=== PATIENT | female | born 1950 | race Caucasian/White ===

== ENCOUNTER → 2021-01-13 08:56 | Outpatient (CLI) | payer MEDICARE, OTHER, SELFPAY ==
[2021-01-13 20:01] LABS: SARS-CoV-2 RNA PCR Negative
== END ==
PROVIDERS: PCP Family Medicine; Visit Provider Physician Assistant
DX: Z20.822 Contact with and (suspected) exposure to COVID-19 (principal)
CPT/HCPCS: C9803; U0003; U0005

== ENCOUNTER → 2021-03-19 00:56 | Outpatient (CLI) | payer MEDICARE, OTHER, SELFPAY ==
[2021-03-19 18:23] LABS: SARS-CoV-2 RNA PCR Negative
== END ==
PROVIDERS: PCP Family Medicine; Visit Provider Family Medicine
DX: Z20.822 Contact with and (suspected) exposure to COVID-19 (principal)
CPT/HCPCS: C9803; U0003; U0005

== ENCOUNTER → 2021-06-06 08:47 | Outpatient (CLI) | payer MEDICARE, OTHER, SELFPAY ==
[2021-06-07 10:57] LABS: SARS-CoV-2 RNA PCR Negative
== END ==
PROVIDERS: PCP Family Medicine; Visit Provider Family Medicine
DX: J06.9 Acute upper respiratory infection, unspecified (principal); Z20.822 Contact with and (suspected) exposure to COVID-19
CPT/HCPCS: C9803; U0003; U0005

== ENCOUNTER 2023-08-22 08:44 | Outpatient (CLI) | payer MEDICARE, OTHER, SELFPAY ==
--- NOTE | ~2023-08-22 | US_ITS ---
Limited Abdominal Sonogram: Real-time sonographic imaging of the right upper quadrant was performed. Clinical History: Epigastric pain Findings: The liver appears mildly echogenic, with no evidence of mass lesion or bile duct dilatatio n. Main portal vein demonstrates normal direction of flow. The gallbladder is well distended, and kortney ears normal with no evidence of gallstone or wall thickening. The common bile duct measures 5 mm. Th e visualized pancreas, aorta, and IVC are unremarkable. Impression: Diffuse fatty infiltration of liver. Reviewed, dictated and finalized at location M. Impression: Diffuse fatty infiltration of liver.
== END 2023-08-22 08:45 ==
LOC: MICIMG 08:46
PROVIDERS: PCP Family Medicine; Visit Provider Family Medicine
DX: R10.13 Epigastric pain (principal); K76.9 Liver disease, unspecified
CPT/HCPCS: 76705

== ENCOUNTER 2024-02-04 11:36 | Emergency (ER) | payer MEDICARE, OTHER, SELFPAY ==
--- NOTE | ~2024-02-04 | XR_ITS ---
EXAMINATION: XR knee RT min 4V DATE: 02/04/2024 12:14 INDICATION: Anterior right knee pain. TECHNIQUE: 4 views of right knee were obtained. COMPARISON: None. FINDINGS: Alignment is normal. No fracture. There is mild tricompartmental osteoarthritis. No knee rufino int effusion. IMPRESSION: 1. Mild right knee osteoarthritis. Reviewed, dictated and finalized at location A.
[2024-02-04 11:52] VITALS: BP 121/73; PULSE 99; RESP 18; TEMP 36.2; O2SAT 97
--- NOTE | 2024-02-04 12:04 | ED.EXTPRO ---
HPI - Extremity Problem General Chief complaint: Extremity Problem,Nontraumatic Stated complaint: RT Knee Pain Source: patient, RN notes reviewed and old records reviewed Mode of arrival: ambulatory Limitations: no limitations History of Present Illness HPI Narrative: Patient presents with complaints of right knee pain for 2 weeks. She reports that she initially began having pain when climbing out of a pool 2 weeks ago. She reports now she is having sensation of knee locking and clicking. States that this worsened yesterday. She is taking [id number] medications for her symptoms without any significant relief. She has had multiple surgeries on her left knee, states that this knee feels the way it did before she had to have surgery on the opposite knee Related Data Allergies Allergy/AdvReac Type Severity Reaction Status Date / Time prednisone AdvReac Intermediate Palpitation Verified 02/04/24 11:40 s Sulfa (Sulfonamide AdvReac Mild itching Verified 02/04/24 11:40 Antibiotics) Review of Systems Review of Systems: All systems reviewed & are unremarkable except as noted in HPI and below Constitutional: Constitutional: Reports no additional constitutional complaints ENT: Reports system reviewed and no additional complaints, except as documented Cardiovascular: Cardiovascular: Reports no additional cardiovascular complaints Respiratory: Respiratory: Reports no additional respiratory complaints Gastrointestinal: Gastrointestinal: Reports no additional gastrointestinal complaints Musculoskeletal: Musculoskeletal: Reports no additional musculoskeletal complaints, Reports as per HPI and Reports arthralgias (right knee) [facility] Past Medical History Medical History Abnormal uterine and vaginal bleeding, unspecified Benign essential HTN Chronic obstructive pulmonary disease, unspecified Elevated blood-pressure reading, without diagnosis of hypertension Major depressive disorder, recurrent, in partial remission Other abnormal glucose Pure hyperglyceridemia 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 Social History Social History Smoking status: Former smoker Second hand tobacco smoke exposure: No Alcohol intake: never Substance use: never Substance use type: does not use Do You Feel Safe in your Home?: Yes Lack of Transportation: No Lack of Food: Never True Current Housing: I Have Housing Concerned About Future Housing: No Difficulty Paying for Meds: No Currently Unemployed: No Education: High School Diploma/GED Difficulty w/ Childcare or Family Care: No Living arrangements: alone Occupation/Education: retired Gender identity (if verbalized by the patient): Female Sexual Orientation (if Verbalized by the Patient): Straight or Heterosexual Spiritual care concerns: No Comments At the time of my signature, I reviewed and agree with the nursing past medical, surgical, social, and family history. There is no relevant family history pertinent to the patient complaint. Exam Const: General: cooperative, no acute distress, alert and awake Orientation/consciousness: oriented to person, oriented to place and oriented to time HENMT: Head: normal to inspection Resp: Effort & Inspection: normal respiratory effort and able to speak in complete sentences Auscultation: clear to auscultation bilaterally, no crackles, no rales, no rhonchi and no wheezes Cardio: Palpation: normal PMI Rate: regular rate Rhythm: regular rhythm Heart sounds: S1 normal heart sound present and S2 normal heart sound present Neuro: General: oriented to person, oriented to place and oriented to time Cranial nerves: Yes CN's II-XII intact bilaterally Extrem: Right lower extremity: knee Details: normal to inspection, tenderness Location: of the patella Details: laterally
== END 2024-02-04 12:44 | disposition home or self-care (01) ==
PROVIDERS: Emergency Provider Nurse Practitioner Family; PCP Family Medicine
DX: M25.561 Pain in right knee (principal); M17.11 Unilateral primary osteoarthritis, right knee; I10 Essential (primary) hypertension; J44.9 Chronic obstructive pulmonary disease, unspecified; E78.1 Pure hyperglyceridemia; E11.319 Type 2 diabetes mellitus with unspecified diabetic retinopathy without macular edema; Z79.84 Long term (current) use of oral hypoglycemic drugs
CPT/HCPCS: 73564; 99213; G0463

== ENCOUNTER 2025-03-07 20:22 | Inpatient (IN) | payer MEDICARE, OTHER, SELFPAY ==
[2025-03-07] VITALS (9 sets, daily range): BP systolic 156–165; BP diastolic 66–78; PULSE 78–96; RESP 18–20; TEMP 36.9; O2SAT 94–97
--- NOTE | ~2025-03-07 | CT_ITS ---
EXAMINATION: CT knee RT wo con DATE: 03/08/2025 01:07 INDICATION: Right knee pain. TECHNIQUE: Computed tomography (CT) of the right knee was performed without intravenous contrast. Automated exposure control and iterative reconstruction technique were employed. The dose-length product was 664.40 mGy-cm. COMPARISON: Right knee radiographs 03/07/2025 FINDINGS: Alignment is normal. No fracture. There is moderate osteoarthritis of medial and lateral compartments and mild osteoarthritis of patellofemoral compartment. No knee joint effusion. There is a small Roque's cyst. IMPRESSION: 1. Moderate right knee osteoarthritis. Reviewed, dictated and finalized at location E.
--- NOTE | ~2025-03-07 | XR_ITS ---
Examination: XR knee RT min 4V Clinical History: right knee pain Comparison: None Technique: 4 views right knee Findings/impression: 1. No fracture, dislocation, or effusion right knee. Reviewed, dictated and finalized at location R.
--- OUTSIDE RECORDS SUMMARY | 2025-03-07 21:02 | XMS_ITS | Clinical Summary ---
Author Organization [facility] Address [address] [place] [id number] Care Team Providers Care Special Delivery Messenger Name Role Phone Flavio Mcneal MD Primary Care Provider [phone] Allergies Active Allergy Reactions Criticality Noted Date Comments Prednisone Anxiety Low 10/20/2023 Soybean Oil Other (see comment) 05/18/2019 Mouth sores Sulfa Antibiotics Itching Low 04/18/2019 Medications losartan 100 MG tablet Take 1 tablet (100 mg total) by mouth daily. 1 9 Active metFORMIN ER 500 MG 24 hr tablet Take 1 tablet (500 mg total) by mouth daily before supper. 9 Active sertraline 50 MG tablet Take 1 tablet (50 mg total) by mouth daily. 9 Active FARXIGA 10 MG tablet Take 1 tablet (10 mg total) by mouth daily. 4 Active albuterol sulfate HFA 108 (90 Base) MCG/ACT inhaler INHALE 1 PUFF BY MOUTH EVERY 4 HOURS NEEDED FOR SHORTNESS OF BREATH OR WHEEZING 3 Active Budesonide-Form oterol Fumarate (SYMBICORT IN) Inhale 1-2 puffs into the lungs daily. Active Active Problems Problem Noted Date Diagnosed Date COPD with acute exacerbation 10/20/2023 Family History Medical History Relation Comments COPD Father Cancer Father Heart Disease Father COPD Mother Heart Disease Mother Relation Status Comments Father Mother Social History Tobacco Use Types Packs/Day Years Used Date Smoking Tobacco: Former Cigarettes Smokeless Tobacco: Never Tobacco Cessation:Counseling Given: Not Answered Comments:Quit 10/08/2012 Alcohol Use Standard Drinks/Week Comments No 0 (1 standard drink = 0.6 oz pur e alcohol) AUDIT-C Answer Date Recorded Frequency of Alcohol Consumption Never 04/18/2019 Average Number of Drinks Not on file 019 Frequency of Binge Drinking Not on file 03/22 Comments No Sex and Gender Information Value Date Recorded Sex Assigned at Not on file Legal Sex Female 10:11 PM CDT Gender Identity Not on file Sexual Orientation Not on file Last Filed Vital Signs Vital Sign Reading Time Taken Comments Blood Pressure 158/65 10/21/2023 11:50 AM CDT Pulse 84 10/21/2023 11:50 AM CDT Temperature 35.7 C (96.2 F) 10/21/2023 11:50 AM CDT Respiratory Rate 20 10/21/2023 11:5 0 AM CDT Oxygen Saturation 96% 10/21/2023 11: 50 AM CDT Inhaled Oxygen Concentration - - Weight 111.1 kg (244 lb 14.9 oz) 10/21/2023 5:00 AM CDT Height 167.6 cm (5' 6) 10/20/2023 9:23 AM CDT Body Mass Index 39.53 10/20/2023 9:23 AM CDT Plan of Treatment Health Maintenance Due Date Last Done Comments Hepatitis C 1966 DTaP, Tdap and Td Vaccines ( 1 - Tdap) 1967 Pneumococcal Vaccine: 50+ Years (1 of 2 - PCV) 1967 Zoster Vaccines (1 of 2) 1998 Annual Medicare Wellness Visit 2013 Dexa Scan (General) 2013 RSV Immunization or 60+ Years (1 - 1-dose 75+ series) 2023 COVID-19 Vaccine (3 - 2024-2 6 season) 2025 08/12/2020, 07/22/2020 Influenza Adult (#1) 2025 03/14/2019 Hepatitis A Vaccines Aged Out No long er eligible based on patient's age to complete this topic Meningococcal B Vaccine Aged Out No l onger eligible based on patient's age to complete this topic Meningococcal Vaccine Aged Out No krys live eligible based on patient's age to complete this topic RSV Immunizations Under 20 Months Aged Out No longer eligible b ased on patient's age to complete this topic Insurance MEDICARE [facility] Advance Directives Documents on File Type Date Recorded 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
--- NOTE | 2025-03-07 22:30 | ED.EXTPRO ---
HPI - Extremity Problem General Chief complaint: Extremity Problem,Nontraumatic <Alma Foster PA-C - Last Filed: 03/08/25 14:53> Stated complaint: R KNEE POPPING WHILE WALKING <Alma Foster PA-C - Last Filed: 03/08/25 14:53> Time Seen by Provider: 03/07/25 20:42 <Alma Foster PA-C - Last Filed: 03/08/25 14:53> Source: patient <BIN Jaeger Last Filed: 03/08/25 14:53> Mode of arrival: EMS <BIN Jaeger Last Filed: 03/08/25 14:53> Limitations: no limitations <Alma Foster PA-C - Last Filed: 03/08/25 14:53> History of Present Illness HPI Narrative: This is a 75 year old female that presents to the ER for right knee pain. Reports it has been bothering her the last couple of days. But worsening tonight when feeling a pop while walking. Reports decreased ROM, unable to bear weight. Denies numbness. <Alma Foster PA-C - Last Filed: 03/08/25 14:53> Related Data Allergies/Adverse reactions: Allergies Allergy/AdvReac Type Severity Reaction Status Date / Time soy Allergy Severe Sore mouth Verified 03/08/25 04:39 prednisone AdvReac Intermediate Palpitation Verified 03/08/25 04:39 s Sulfa (Sulfonamide AdvReac Mild itching Verified 03/08/25 04:39 Antibiotics) <Alma Foster PA-C - Last Filed: 03/08/25 14:53> Review of Systems Review of Systems: All systems reviewed & are unremarkable except as noted in HPI and below <Alma Foster PA-C - Last Filed: 03/08/25 14:53> [facility] Past Medical History Medical History: Medical History 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 Major depressive disorder, recurrent, in partial remission Pure hyperglyceridemia Benign essential HTN Abnormal uterine and vaginal bleeding, unspecified Other abnormal glucose Chronic obstructive pulmonary disease, unspecified Elevated blood-pressure reading, without diagnosis of hypertension <Alma Foster PA-C - Last Filed: 03/08/25 14:53> Social History Social History: Social History (Updated 03/08/25 @ 04:55 by Duane Garcia RN) Smoking status: Former smoker Second hand tobacco smoke exposure: No Alcohol intake: never Substance use: never Substance use type: does not use Do You Feel Safe in your Home?: Yes Lack of Transportation: No Lack of Food: Never True Current Housing: I Have Housing Concerned About Future Housing: No Difficulty Paying Gas/Electric Bills: No Difficulty Paying for Meds: No Currently Unemployed: No Education: High School Diploma/GED Difficulty w/ Childcare or Family Care: No Living arrangements: other Occupation/Education: retired Gender identity (if verbalized by the patient): Female Sexual Orientation (if Verbalized by the Patient): Straight or Heterosexual Spiritual care concerns: No Agree to blood products: Yes <Alma Foster PA-C - Last Filed: 03/08/25 14:53> Exam Narrative: GENERAL: Well-appearing, well-nourished, and in no acute distress. HEAD: Normocephalic, atraumatic. EYES: EOMI. EXTREMITIES: Mildly decreased range of motion of the right knee due to pain. No edema or obvious deformity. Normal DP pulse. Normal sensation SKIN: Warm, dry, no rash. NEURO: No focal deficits. Alert and oriented x3. PSYCH: Normal mood and affect <Alma Foster PA-C - Last Filed: 03/08/25 14:53> Course Course Emergency Course: patient unable to ambulate with walker. will consult hospitalist for admission <Alma Foster PA-C - Last Filed: 03/08/25 14:53> Reevaluation(s) Reevaluation #1: I assumed care of this patient at shift change with pending CT and disposition. No interval change in physical her condition. CT just shows no evidence of fracture or dislocation tiny Roque's cyst about 3mmX 6 mm. Discussed with the hospitalist will accept the patient <Jd Peter MD - Last Filed: 03/08/25 03:02> Vital Signs Vital signs: Vital Signs Temperature 98.4 F 03/07/25 20:25 Pulse Rate 96 03/07/25 20:25 Respiratory Rate 20 03/07/25 20:25 Blood Pressure 157/72 H 03/07/25 20:25 Pulse Oximetry 96 03/07/25 20:25 Oxygen Delivery Room Air 03/07/25 20:25 Temperature 97.5 F L 03/08/25 04:24 Pulse Rate 84 03/08/25 04:24 Respiratory Rate 16 03/08/25 04:24 Blood Pressure 151/76 H 03/08/25 04:24 Pulse Oximetry 97 03/08/25 04:24 Oxygen Delivery Room Air 03/08/25 04:55 <Alma Foster PA-C - Last Filed: 03/08/25 14:53> Vital Signs Temperature 98.4 F 03/07/25 20:25 Pulse Rate 96 03/07/25 20:25 Respiratory Rate 20 03/07/25 20:25 Blood Pressure 157/72 H 03/07/25 20:25 Pulse Oximetry 96 03/07/25 20:25 Oxygen Delivery Room Air 03/07/25 20:25 Temperature 97.5 F L 03/08/25 04:24 Pulse Rate 84 03/08/25 04:24 Respiratory Rate 16 03/08/25 04:24 Blood Pressure 151/76 H 03/08/25 04:24 Pulse Oximetry 97 03/08/25 04:24 Oxygen Delivery Room Air 03/08/25 04:55 <Jd Peter MD - Last Filed: 03/08/25 03:02> MDM - Extremity (Nontraumatic) MDM Narrative Medical decision making narrative: Patient presents the emergency department after feeling a pop in her right knee while walking. She is neurovascularly intact. Right knee x-ray without acute osseous abnormalities. Attempt at ambulation, patient was not able to get around with a walker. She lives home alone. Will consult hospitalist for admission for PT/OT evaluation. Would like CT scan prior to admission. Care taken over by Dr. Peter pending CT scan results <BIN Jaeger Last Filed: 03/08/25 14:53> Differential Diagnosis Differential diagnosis: Likely other (Acute internal derangement of knee, osteoarthritis, tibial plateau fracture) <Alma Foster PA-C - Last Filed: 03/08/25 14:53> Lab Data Result diagrams: 03/08/25 08:59 03/08/25 09:00 <Alma Foster PA-C - Last Filed: 03/08/25 14:53> Imaging Data Radiologist's impression: Right knee x-ray: No evidence of acute fracture or dislocation EXAMINATION: CT knee RT wo con DATE: 03/08/2025 01:07 INDICATION: Right knee pain. TECHNIQUE: Computed tomography (CT) of the right knee was performed without intravenous contrast. Automated exposure control and iterative reconstruction technique were employed. The dose-length product was 664.40 mGy-cm. COMPARISON: Right knee radiographs 03/07/2025 FINDINGS: Alignment is normal. No fracture. There is moderate osteoarthritis of medial and lateral compartments and mild osteoarthritis of patellofemoral compartment. No knee joint effusion. There is a small Roque's cyst. IMPRESSION: 1. Moderate right knee osteoarthritis. <Alma Foster PA-C - Last Filed: 03/08/25 14:53> Critical Care Time Critical Care Time Critical Care Time: No <Alma Foster PA-C - Last Filed: 03/08/25 14:53> Discharge Plan Discharge Clinical Impression: Acute internal derangement of right knee, Abnormal gait <Alma Foster PA-C - Last Filed: 03/08/25 14:53> Patient Disposition: Still a Patient <Alma Foster PA-C - Last Filed: 03/08/25 14:53> Condition: Stable <Alma Foster PA-C - Last Filed: 03/08/25 14:53> Time of Disposition: 03:01 <Alma Foster PA-C - Last Filed: 03/08/25 14:53> 03:01 <Jd Peter MD - Last Filed: 03/08/25 03:02>
[2025-03-07] MEDS: ACETAMINOPHEN 500 MG TABLET 1000 MG PO (22:38)
[2025-03-08 03:53] VITALS: BP 156/78; PULSE 78; RESP 18; O2SAT 100
[2025-03-08 04:05] VITALS: BP 126/75; PULSE 76; RESP 18; O2SAT 99
[2025-03-08 04:24] VITALS: BP 151/76; PULSE 84; RESP 16; TEMP 36.4; O2SAT 97
[2025-03-08 04:27] VITALS: BMI 40.2
--- NOTE | 2025-03-08 04:27 | ADMGEN ---
This patient, Kita Grey, was admitted to [facility] Surg Room 302-01. Patient/family oriented to hospital policies and general routines including ID bracelet, bed and alarms, visiting hours, pain management, procedures, bathroom and other care routines, personal items, smoking policy, room service/diet, and visiting hours. Information on how to activate the Rapid Response Team has been discussed. Patient/Family are encouraged to report perceived risks to care and to ask questions if they do not understand what they are told or what they should do.
--- NOTE | 2025-03-08 06:51 | PM.IMHP ---
H&P: HPI History of Present Illness Date/Time: 03/08/25 06:51 Chief Complaint: Right knee pain Narrative: 75-year-old female with history of class 3 obesity, kang cyst right knee, hypertension, COPD, depression, type 2 diabetes without current long to receive insulin, presents [facility] ER on 03/07/2025 complaining of right knee pain, patient was walking and heard a pop, she has since had pain. X-ray and CT of right knee did not demonstrate any acute abnormalities. Patient unable to ambulate in the ER. Review of Systems Review of Systems: All systems reviewed & are unremarkable except as noted in HPI and below (Subjective) PMFSH Past Medical History Medical History 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 Major depressive disorder, recurrent, in partial remission Pure hyperglyceridemia Benign essential HTN Abnormal uterine and vaginal bleeding, unspecified Other abnormal glucose Chronic obstructive pulmonary disease, unspecified Elevated blood-pressure reading, without diagnosis of hypertension Social History Social History (Updated 03/08/25 @ 04:55 by Duane Garcia RN) Smoking status: Former smoker Second hand tobacco smoke exposure: No Alcohol intake: never Substance use: never Substance use type: does not use Do You Feel Safe in your Home?: Yes Lack of Transportation: No Lack of Food: Never True Current Housing: I Have Housing Concerned About Future Housing: No Difficulty Paying Gas/Electric Bills: No Difficulty Paying for Meds: No Currently Unemployed: No Education: High School Diploma/GED Difficulty w/ Childcare or Family Care: No Living arrangements: other Occupation/Education: retired Gender identity (if verbalized by the patient): Female Sexual Orientation (if Verbalized by the Patient): Straight or Heterosexual Spiritual care concerns: No Agree to blood products: Yes Meds Home Medications and Allergies Home Medications ?Medication ?Instructions ?Recorded ?Confirmed ?Type albuterol sulfate 90 mcg/actuation 1 inh inhalation Q4H PRN shortness 02/13/23 03/08/25 Rx aerosol inhaler of breath or wheezing #6.7 grams dapagliflozin propanediol 10 mg 10 mg PO DAILY #100 tabs 09/30/24 03/08/25 Rx tablet (Farxiga) losartan 100 mg tablet 100 mg PO DAILY #90 tabs 02/20/25 03/08/25 Rx metformin 500 mg tablet 1,000 mg (2 x 500 mg) PO DAILY 02/20/25 03/08/25 Rx #180 tabs sertraline 50 mg tablet 50 mg PO DAILY #90 tabs 02/20/25 03/08/25 Rx Allergies Allergy/AdvReac Type Severity Reaction Status Date / Time soy Allergy Severe Sore mouth Verified 03/08/25 04:39 prednisone AdvReac Intermediate Palpitation Verified 03/08/25 04:39 s Sulfa (Sulfonamide AdvReac Mild itching Verified 03/08/25 04:39 Antibiotics) Vital Signs Vital Signs - 24 hr 03/07/25 20:25 03/07/25 20:48 03/07/25 21:00 Temperature 98.4 F Pulse Rate 96 Respiratory Rate 20 Blood Pressure 157/72 H Pulse Oximetry 96 97 95 Oxygen Delivery Room Air 03/07/25 21:01 03/07/25 21:21 03/07/25 21:30 Temperature Pulse Rate Respiratory Rate Blood Pressure 165/66 H Pulse Oximetry 95 95 94 Oxygen Delivery 03/07/25 21:45 03/07/25 22:31 03/07/25 22:35 Temperature Pulse Rate 78 Respiratory Rate 18 Blood Pressure 156/78 H Pulse Oximetry 94 94 94 Oxygen Delivery 03/08/25 03:53 03/08/25 04:05 03/08/25 04:24 Temperature 97.5 F L Pulse Rate 78 76 84 Respiratory Rate 18 18 16 Blood Pressure 156/78 H 126/75 151/76 H Pulse Oximetry 100 99 97 Oxygen Delivery 03/08/25 04:55 Temperature Pulse Rate Respiratory Rate Blood Pressure Pulse Oximetry Oxygen Delivery Room Air Exam Const: General: comfortable and no acute distress Other: A&O x3 HENMT: Mouth: Yes moist mucous membranes Eyes: Pupils: Equal, round and reactive pupils present Neck: Neck: supple Resp: Effort & Inspection: normal respiratory effort Auscultation: clear to auscultation bilaterally Cardio: Rate: regular rate Rhythm: regular rhythm GI: Inspection: non-distended GI Palp: Yes Soft to palpation : General: Yes bladder normal to palpation Neuro: Motor exam (neuro): 5/5 motor strength present throughout Extrem: General: no edema Other: Valgus and varus stress test negative, posterior and anterior ligament testing negative, although patient writhing in pain when trying to flex the knee herself Assessment and Plan Assessment and plan (1) Right knee pain: Code(s): M25.561 - Pain in right knee Status: Acute Plan Unable to bear weight on right knee, consult orthopedic surgery. SCDs. Patient wishes to be full code. Hospitalist MIPS Advance Care Plan I have confirmed that the patient's Advanced Care Plan is present, code status is documented, or surrogate decision maker is listed in patient medical record.: Yes Medication Reconciliation I have utilized all available resources to obtain, update and review the patients current medications (includes all prescriptions, OTC, herbals, cannabis, and nutritional supplements).: Yes
[2025-03-08] MEDS: SERTRALINE HCL 50 MG TABLET PO (08:26)
[2025-03-08] MEDS: LOSARTAN POTASSIUM 100 MG TABLET PO (08:26)
[2025-03-08 09:07] LABS: Hematocrit 44.1 % (37.0-47.0); Hemoglobin 13.9 g/dL (12.0-15.0); Immature Granulocyte Percent A 0.3 % (0-0.5); Lymphocytes Absolute Auto 2.39 K/mm3 (0.9-3.2); Mean Corpuscular HGB Conc 31.5 g/dl (32-36); Mean Corpuscular Hemoglobin 28.0 pg (26-34); Mean Corpuscular Volume 88.9 fl (80-100); Nucleated Red Blood Cells Absolute Auto 0.000 K/mm3 (0.0-0.012); Nucleated Red Blood Cells Perc 0.0 % (0.0-0.2); Platelet Count Result 186 k/mm3 (150-375); Red Blood Count 4.96 M/mm3 (4.2-5.4); White Blood Count 8.6 K/mm3 (4.5-10.0)
[2025-03-08 09:26] LABS: INR 1.0; Prothrombin Time 13.5 Seconds (11.1-14.7)
[2025-03-08 09:27] LABS: Partial Thromboplastin Time 25.3 Seconds (22.3-36.8)
[2025-03-08 09:29] LABS: Anion Gap 7 mmol/L (4-12); Blood Urea Nitrogen 16 mg/dL (7-17); Calcium 9.0 mg/dL (8.4-10.2); Carbon Dioxide 24 mmol/L (22-30); Chloride 104 mmol/L (98-107); Estimated CRCL calculation 65 ml/min; Estimated Glomerular Filt Rate > 60; Glucose 178 mg/dL (65-110); Potassium 3.9 mmol/L (3.4-5.0); Sodium 135 mmol/L (137-145)
[2025-03-08 09:57] LABS: Hemoglobin A1C 6.6 % (<5.7)
--- NOTE | 2025-03-08 12:49 | P.PNIM_ITS ---
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 SCDs. Patient wishes to be full code. Time Spent With Patient Time with patient: 25 - 35 minutes Subjective Date/time seen: 03/08/25 12:49 Interval history: 75-year-old female with history of class 3 obesity, kang cyst right knee, hypertension, COPD, depression, type 2 diabetes without current long to receive insulin, presents the [facility] ER on 03/07/2025 complaining of right knee pain, patient was walking and heard a pop, she has since had pain. X-ray and CT of right knee did not demonstrate any acute abnormalities. Patient unable to ambulate in the ER. Pt is seen and examined. Ortho consulted, awaiting recommendations. Pain is controlled. NO nausea. Review of Systems Review of Systems: All systems reviewed & are unremarkable except as noted in HPI and below (Subjective) Exam Const: General: comfortable and no acute distress Other: A&O x3 HENMT: Mouth: Yes moist mucous membranes Eyes: Pupils: Equal, round and reactive pupils present Neck: Neck: supple Resp: Effort & Inspection: normal respiratory effort Auscultation: clear to auscultation bilaterally Cardio: Rate: regular rate Rhythm: regular rhythm GI: Inspection: non-distended : General: Yes bladder normal to palpation Bimanual exam- vagina & uterus: bladder normal to palpation Neuro: Cranial nerves: Yes Equal, round and reactive pupils present Motor exam (neuro): 5/5 motor strength present throughout Extrem: General: no edema Other: Valgus and varus stress test negative, posterior and anterior ligament testing negative, although patient writhing in pain when trying to flex the knee herself Objective Data Vital Signs Vital Signs: Vital Signs - 24 hr 03/07/25 20:25 03/07/25 20:48 03/07/25 21:00 Temperature 98.4 F Pulse Rate 96 Respiratory Rate 20 Blood Pressure 157/72 H Pulse Oximetry 96 97 95 Oxygen Delivery Room Air 03/07/25 21:01 03/07/25 21:21 03/07/25 21:30 Temperature Pulse Rate Respiratory Rate Blood Pressure 165/66 H Pulse Oximetry 95 95 94 Oxygen Delivery 03/07/25 21:45 03/07/25 22:31 03/07/25 22:35 Temperature Pulse Rate 78 Respiratory Rate 18 Blood Pressure 156/78 H Pulse Oximetry 94 94 94 Oxygen Delivery 03/08/25 03:53 03/08/25 04:05 03/08/25 04:24 Temperature 97.5 F L Pulse Rate 78 76 84 Respiratory Rate 18 18 16 Blood Pressure 156/78 H 126/75 151/76 H Pulse Oximetry 100 99 97 Oxygen Delivery 03/08/25 04:55 Temperature Pulse Rate Respiratory Rate Blood Pressure Pulse Oximetry Oxygen Delivery Room Air Intake/Output Intake/Output: Intake & Output 03/05/25 03/06/25 03/07/25 03/08/25 23:59 23:59 23:59 23:59 Intake Total 120 Balance 120 Meds/Results Medications: Active Medications Generic Name Dose Route Start Last Admin Trade Name Freq PRN Reason Stop Dose Admin Acetaminophen 650 mg 03/08/25 03:03 Acetaminophen 325 Mg Tablet PO Q4H PRN Mild Pain (1-3) or Fever Hydrocodone Bitart/Acetaminophen 1 tab 03/08/25 03:03 Hydrocodone/Acetaminophen (*Crx) 5-325 Mg Tablet PO Q4H PRN Pain Rated 4-6 Albuterol 2 puff 03/08/25 06:53 Albuterol Sulfate (*Sp) Aerosol 1 Puff INHALATION Q4H PRN Shortness Of Breath Or Wheezing Dextrose 12.5 gm 03/08/25 06:50 Dextrose 50% 25 Gm/50 Ml Syringe IV PUSH PRN PRN Hypoglycemia Protocol Glucose 15 gm 03/08/25 06:50 Glucose Oral Gel 15 Gm Of Glucse In 37.5 Gm Tube PO PRN PRN Hypoglycemia Protocol Dextrose 1,000 mls @ 100 mls/hr 03/08/25 06:50 Dextrose 5% 1,000 Ml IVPB PRN PRN Hypoglycemia Protocol Ibuprofen 800 mg in 200 mls @ 400 mls/hr 03/08/25 09:30 Caldolor 800 Mg/200 Ml IVPB Q6H PRN Pain Rated 1-3 Insulin Aspart 3 - 6 units 03/08/25 08:00 03/08/25 11:45 Insulin Aspart (*Bkc) 100 Units/Ml SUB-Q Not Given TIDWM KENJI Protocol Losartan Potassium 100 mg 03/08/25 09:00 03/08/25 08:26 Losartan Potassium 100 Mg Tablet PO 100 mg DAILY KENJI Administration Ondansetron HCl 4 mg 03/08/25 03:03 Ondansetron Inj 4 Mg/2 Ml Vial IV PUSH Q4H PRN Nausea Sertraline HCl 50 mg 03/08/25 09:00 03/08/25 08:26 Sertraline Hcl 50 Mg Tablet PO 50 mg DAILY KENJI Administration Radiology Results: ITS Impressions Knee CT 03/08/25 09:43 IMPRESSION: 1. Moderate right knee osteoarthritis. Labs Labs: Laboratory Results - last 24 hr 03/08/25 03/08/25 03/08/25 08:12 08:59 09:00 WBC 8.6 RBC 4.96 Hgb 13.9 Hct 44.1 MCV 88.9 MCH 28.0 MCHC 31.5 L RDW 14.6 H Plt Count 186 MPV 10.4 Immature Gran % (Auto) 0.3 Neut % (Auto) 59.1 Lymph % (Auto) 27.7 [place] % (Auto) 6.6 Eos % (Auto) 5.6 H Baso % (Auto) 0.7 Lymph # (Auto) 2.39 [place] # (Auto) 0.6 Eos # (Auto) 0.5 H Baso # (Auto) 0.1 Abs Immat Gran (auto) 0.03 Absolute Neuts (auto) 5.1 Absolute Nucleated RBC 0.000 Nucleated RBC % 0.0 PT 13.5 INR 1.0 APTT 25.3 Sodium 135 L Potassium 3.9 Chloride 104 Carbon Dioxide 24 Anion Gap 7 BUN 16 Creatinine 0.80 Estim Creat Clear Calc 65 Estimated GFR > 60 Glucose 178 H POC Capillary Glucose 174 H Hemoglobin A1c 6.6 H Calcium 9.0 03/08/25 11:39 WBC RBC Hgb Hct MCV MCH MCHC RDW Plt Count MPV Immature Gran % (Auto) Neut % (Auto) Lymph % (Auto) [place] % (Auto) Eos % (Auto) Baso % (Auto) Lymph # (Auto) [place] # (Auto) Eos # (Auto) Baso # (Auto) Abs Immat Gran (auto) Absolute Neuts (auto) Absolute Nucleated RBC Nucleated RBC % PT INR APTT Sodium Potassium Chloride Carbon Dioxide Anion Gap BUN Creatinine Estim Creat Clear Calc Estimated GFR Glucose POC Capillary Glucose 192 H Hemoglobin A1c Calcium
[2025-03-08 14:00] VITALS: BP 149/81; PULSE 85; RESP 16; TEMP 36.8; O2SAT 94
[2025-03-08 20:01] VITALS: BP 137/52; PULSE 88; RESP 16; TEMP 36.4; O2SAT 95
[2025-03-09 04:43] VITALS: BP 136/59; PULSE 88; RESP 16; TEMP 36.4; O2SAT 95
--- NOTE | 2025-03-09 08:18 | PM.IMPN ---
Progress Note: A&P Assessment and Plan (1) Right knee pain: Code(s): M25.561 - Pain in right knee Status: Acute Assessment and Plan: Knee XR: no fracutre, dislocation or effusion of right knee Knee CT: mod right knee osteoarthritis analegesics: ibuprofen and norco voltaren pt/ot weight bearing as tolerated patient unable to ambulate with pt to assess gait, continue to work with PT/OT ortho consulted Conservative treatment ice, compression and elevation. PT/OT with weight-bearing as tolerated. Ibuprofen IV p.r.n.. 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: Code(s): E11.3299 - Type 2 diabetes mellitus with mild nonproliferative diabetic retinopathy without macular edema, unspecified eye Status: Acute Assessment and Plan: - hypoglycemia protocol - POC blood glucose ACHS - home medication - dapagliflozin 10 mg daily and metformin 1000 mg daily, on hold during admission - correct regimen ordered - SSI Time Spent With Patient Time with patient: 25 - 35 minutes Subjective Date/time seen: 03/09/25 08:18 Interval history: 75-year-old female with history of kang cyst right knee, hypertension, COPD, depression, type 2 diabetes without current long to receive insulin presented complaining of right knee pain and inability to ambulate. Patient is pleasant sitting up comfortably in her chair. She continues to endorse slight knee pain but states that this is much improved since admission. She denies any tingling/numbness or shooting pain to the lower extremity. She has no other complaints denying chest pain, palpitations, shortness of breath, nausea vomiting, abdominal pain, and dizziness/lightheadedness with ambulation Review of Systems Review of Systems: All systems reviewed & are unremarkable except as noted in HPI and below (Subjective) Exam Narrative: AF HR 97 RR 18 Spo2 95 BP 108/74 General: female in no acute respiratory distress who is nontoxic appearing, sitting up in chair HEENT: Normocephalic. Atraumatic. Extraocular movement intact. Sclera clear and anicteric. No facial asymmetry. Chest: Lungs are clear to auscultation bilaterally. CV: Heart was regular rate and rhythm. Abd: Abdomen was soft. Nontender. Nondistended. Positive bowel sounds. Ext: No clubbing, cyanosis, or edema. DP pulses bilaterally. Neuro: Patient is alert. Strenth is 5/5 in both upper and lower extremities. Speech is clear. Objective Data Vital Signs Vital Signs: Vital Signs - 24 hr 03/08/25 14:00 03/08/25 20:01 03/08/25 22:45 Temperature 98.3 F 97.6 F Pulse Rate 85 88 Respiratory Rate 16 16 Blood Pressure 149/81 H 137/52 L Pulse Oximetry 94 95 Oxygen Delivery Room Air 03/09/25 04:43 Temperature 97.5 F L Pulse Rate 88 Respiratory Rate 16 Blood Pressure 136/59 L Pulse Oximetry 95 Oxygen Delivery Intake/Output Intake/Output: Intake & Output 03/06/25 03/07/25 03/08/25 03/09/25 23:59 23:59 23:59 23:59 Intake Total 1480 320 Output Total 500 Balance 980 320 Meds/Results Medications: Active Medications Generic Name Dose Route Start Last Admin Trade Name Freq PRN Reason Stop Dose Admin Acetaminophen 650 mg 03/08/25 03:03 Acetaminophen 325 Mg Tablet PO Q4H PRN Mild Pain (1-3) or Fever Hydrocodone Bitart/Acetaminophen 1 tab 03/08/25 03:03 Hydrocodone/Acetaminophen (*Crx) 5-325 Mg Tablet PO Q4H PRN Pain Rated 4-6 Albuterol 2 puff 03/08/25 06:53 Albuterol Sulfate (*Sp) Aerosol 1 Puff INHALATION Q4H PRN Shortness Of Breath Or Wheezing Dextrose 12.5 gm 03/08/25 06:50 Dextrose 50% 25 Gm/50 Ml Syringe IV PUSH PRN PRN Hypoglycemia Protocol Glucose 15 gm 03/08/25 06:50 Glucose Oral Gel 15 Gm Of Glucse In 37.5 Gm Tube PO PRN PRN Hypoglycemia Protocol Dextrose 1,000 mls @ 100 mls/hr 03/08/25 06:50 Dextrose 5% 1,000 Ml IVPB PRN PRN Hypoglycemia Protocol Ibuprofen 800 mg in 200 mls @ 400 mls/hr 03/08/25 09:30 Caldolor 800 Mg/200 Ml IVPB Q6H PRN Pain Rated 1-3 Insulin Aspart 3 - 6 units 03/08/25 08:00 03/09/25 08:18 Insulin Aspart (*Bkc) 100 Units/Ml SUB-Q Not Given TIDWM KENJI Protocol Losartan Potassium 100 mg 03/08/25 09:00 03/08/25 08:26 Losartan Potassium 100 Mg Tablet PO 100 mg DAILY KENJI Administration Ondansetron HCl 4 mg 03/08/25 03:03 Ondansetron Inj 4 Mg/2 Ml Vial IV PUSH Q4H PRN Nausea Sertraline HCl 50 mg 03/08/25 09:00 03/08/25 08:26 Sertraline Hcl 50 Mg Tablet PO 50 mg DAILY KENJI Administration Radiology Results: ITS Impressions Knee CT 03/08/25 09:43 IMPRESSION: 1. Moderate right knee osteoarthritis. Labs Labs: Laboratory Results - last 24 hr 03/08/25 03/08/25 03/08/25 08:12 08:59 09:00 WBC 8.6 RBC 4.96 Hgb 13.9 Hct 44.1 MCV 88.9 MCH 28.0 MCHC 31.5 L RDW 14.6 H Plt Count 186 MPV 10.4 Immature Gran % (Auto) 0.3 Neut % (Auto) 59.1 Lymph % (Auto) 27.7 [place] % (Auto) 6.6 Eos % (Auto) 5.6 H Baso % (Auto) 0.7 Lymph # (Auto) 2.39 [place] # (Auto) 0.6 Eos # (Auto) 0.5 H Baso # (Auto) 0.1 Abs Immat Gran (auto) 0.03 Absolute Neuts (auto) 5.1 Absolute Nucleated RBC 0.000 Nucleated RBC % 0.0 PT 13.5 INR 1.0 APTT 25.3 Sodium 135 L Potassium 3.9 Chloride 104 Carbon Dioxide 24 Anion Gap 7 BUN 16 Creatinine 0.80 Estim Creat Clear Calc 65 Estimated GFR > 60 Glucose 178 H POC Capillary Glucose 174 H Hemoglobin A1c 6.6 H Calcium 9.0 03/08/25 03/08/25 03/08/25 11:39 16:30 19:58 WBC RBC Hgb Hct MCV MCH MCHC RDW Plt Count MPV Immature Gran % (Auto) Neut % (Auto) Lymph % (Auto) [place] % (Auto) Eos % (Auto) Baso % (Auto) Lymph # (Auto) [place] # (Auto) Eos # (Auto) Baso # (Auto) Abs Immat Gran (auto) Absolute Neuts (auto) Absolute Nucleated RBC Nucleated RBC % PT INR APTT Sodium Potassium Chloride Carbon Dioxide Anion Gap BUN Creatinine Estim Creat Clear Calc Estimated GFR Glucose POC Capillary Glucose 192 H 151 H 181 H Hemoglobin A1c Calcium 03/09/25 08:10 WBC RBC Hgb Hct MCV MCH MCHC RDW Plt Count MPV Immature Gran % (Auto) Neut % (Auto) Lymph % (Auto) [place] % (Auto) Eos % (Auto) Baso % (Auto) Lymph # (Auto) [place] # (Auto) Eos # (Auto) Baso # (Auto) Abs Immat Gran (auto) Absolute Neuts (auto) Absolute Nucleated RBC Nucleated RBC % PT INR APTT Sodium Potassium Chloride Carbon Dioxide Anion Gap BUN Creatinine Estim Creat Clear Calc Estimated GFR Glucose POC Capillary Glucose 181 H Hemoglobin A1c Calcium Quality VTE Prophylaxis VTE prophylaxis: pharmacologic ordered
[2025-03-09] MEDS: LOSARTAN POTASSIUM 100 MG TABLET PO (08:57)
[2025-03-09] MEDS: SERTRALINE HCL 50 MG TABLET PO (08:57)
[2025-03-09] MEDS: DICLOFENAC SODIUM 1% 100 GM GEL (*BKC) 1 APPLIC TOPICAL ×4 (09:13→21:29)
--- NOTE | 2025-03-09 11:26 | P.CONOP_ITS ---
Assessment and Plan Assessment and plan (1) Right knee pain: Code(s): M25.561 - Pain in right knee Status: Acute (2) Degenerative arthritis of right knee: Code(s): M17.11 - Unilateral primary osteoarthritis, right knee Status: Acute Assessment and Plan: New patient evaluation for chief complaint right knee pain. History, physical exam and radiographs reviewed with the patient. 2 day history of right knee pain. Radiographs show degenerative changes. CT scan shows moderate to severe degenerative changes patellofemoral joint and moderate medial joint. No acute changes. Discussed the condition, nature, etiology and course of natural history with the patient. Treatment options including surgical and nonoperative treatment were reviewed. Risks and benefits of each as well as alternatives reviewed. The patient's questions were answered. Conservative treatment ice, compression and elevation. PT/OT with weight-bearing as tolerated. Ibuprofen IV p.r.n.. May consider cortisone injection. History of Present Illness HPI Consult date: 03/09/25 Requesting physician: David Flores MD Chief complaint: knee pain inability to walk Narrative: 75-year-old woman with a 2 day history of increasing right knee pain. States she was out to dinner for her birthday 2 nights ago when she felt a pop in the right knee. Had severe pain and inability to walk. She present to the emergency room and was admitted to the hospital due to pain and immobility. No prior problems with the right knee. She does have a history of meniscus tears on the left knee. Complains of pain through the right knee which is sharp. Worse with weight-bearing. Better when she is off of it. Denies numbness and tingling. She does feel fullness in the posterior aspect of the knee. Review of Systems 2 Constitutional: Constitutional: Denies fever(s) Eyes: Eyes: Denies blurry vision ENT: Reports Normal hearing present Cardiovascular: Cardiovascular: Denies chest pain and Denies dyspnea Respiratory: Respiratory: Denies dyspnea and Denies wheezing Gastrointestinal: Gastrointestinal: Denies abdominal pain Genitourinary: Genitourinary: Denies urinary urgency Musculoskeletal: Musculoskeletal: Reports as per HPI and Denies numbness Integumentary/Breasts: Skin/Breast: Denies changing lesions and Denies sores Neurologic: Reports Normal hearing present, Denies behavioral changes, Denies confusion, Denies numbness and Denies convulsions Psychiatric: Psychiatric: Denies behavioral changes, Denies confusion and Denies hallucinations Endocrine: Endocrine: Denies heat intolerance Hematologic/Lymphatic: Hematologic/Lymphatic: Denies easy bleeding Allergic/Immunologic: Allergic/Immunologic: Denies wheezing PMFSH Past Medical History Medical History (Updated 03/09/25 @ 11:31 by Joel Connolly MD) Degenerative arthritis of right knee 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 Major depressive disorder, recurrent, in partial remission Pure hyperglyceridemia Benign essential HTN Abnormal uterine and vaginal bleeding, unspecified Other abnormal glucose Chronic obstructive pulmonary disease, unspecified Elevated blood-pressure reading, without diagnosis of hypertension Social History Social History Smoking status: Former smoker Second hand tobacco smoke exposure: No Alcohol intake: never Substance use: never Substance use type: does not use Do You Feel Safe in your Home?: Yes Lack of Transportation: No Lack of Food: Never True Current Housing: I Have Housing Concerned About Future Housing: No Difficulty Paying Gas/Electric Bills: No Difficulty Paying for Meds: No Currently Unemployed: No Education: High School Diploma/GED Difficulty w/ Childcare or Family Care: No Living arrangements: other Occupation/Education: retired Gender identity (if verbalized by the patient): Female Sexual Orientation (if Verbalized by the Patient): Straight or Heterosexual Spiritual care concerns: No Agree to blood products: Yes Meds Home Medications and Allergies Home Medications ?Medication ?Instructions ?Recorded ?Confirmed ?Type albuterol sulfate 90 mcg/actuation 1 inh inhalation Q4 H PRN shortness 02/13/23 03/08/25 Rx aerosol inhaler of breath or wheezing #6.7 g bam dapagliflozin propanediol 10 mg 10 mg PO DAILY #100 ta bs 09/30/24 03/08/25 Rx tablet (Farxiga) losartan 100 mg tablet 100 mg PO DAILY #90 tabs 08/1203/08/25 Rx metformin 500 mg tablet 1,000 mg (2 x 500 mg) PO LOVELY LY 02/20/25 03/08/25 Rx #180 tabs sertraline 50 mg tablet 50 mg PO DAILY #90 tabs 08/1203/08/25 Rx Allergies Allergy/AdvReac Type Severity Reaction Status Date / Time soy Allergy Severe Sore mouth Verified 03/08/25 04:39 prednisone AdvReac Intermediate Palpitation Verified 03/08/25 04:39 s Sulfa (Sulfonamide AdvReac Mild itching Verified 03/08/25 04:39 Antibiotics) Vital Signs Vital Signs - 24 hr 03/08/25 14:00 03/08/25 20:01 03/08/25 22:45 Temperature 98.3 F 97.6 F Pulse Rate 85 88 Respiratory Rate 16 16 Blood Pressure 149/81 H 137/52 L Pulse Oximetry 94 95 Oxygen Delivery Room Air 03/09/25 04:43 03/09/25 09:42 03/09/25 10:27 Temperature 97.5 F L Pulse Rate 88 Respiratory Rate 16 Blood Pressure 136/59 L Pulse Oximetry 95 Oxygen Delivery Room Air Room Air Exam 2 Const: General: No confusion Orientation/consciousness: patient oriented x3 and No confusion HENMT: Head: normal to inspection, normocephalic and atraumatic Eyes: Conjunctivae: conjunctivae normal Sclera: sclerae normal Neck: Neck: supple and nontender Chest: Chest palpation & inspection: normal inspection of the chest Resp: Effort & Inspection: normal respiratory effort and no audible wheezes Cardio: Rate: regular rate Rhythm: regular rhythm GI: GI Palp: No abdominal tenderness and Yes Soft to palpation : General: Yes deferred Skin: General skin exam: no rashes or lesions noted Neuro: General: patient oriented x3 and No confusion Extrem: General: capillary refill normal Right upper extremity: normal to inspection Left upper extremity: normal to inspection Right lower extremity: hip/thigh Details: normal to inspection and normal ROM; no tenderness, knee Details: normal to inspection, tenderness Location: of the medial joint line, swelling Location: of the pre-patellar area, abnormal ROM Details: pain with active ROM during Details: in extension and in flexion and with range as follows ( -5 degrees - flexion 120?) and Jeannie's Test Details: positive medially, ankle ( able to actively flex and extend ankle) Details: no tenderness and foot Details: normal capillary refill, toes with normal ROM, vascular exam Details: dorsalis pedis pulse present and normal capillary refill and motor-sensory exam Details: light-touch normal Location: in all toes; no tenderness Left lower extremity: normal to inspection, hip/thigh Details: no tenderness and no swelling, lower leg, ankle (no calf tenderness) Details: normal ROM; no tenderness and foot Details: normal capillary refill, vascular exam Details: dorsalis pedis pulse present and normal capillary refill and motor-sensory exam light-touch normal in all toes Psych: Affect: normal affect Results Labs 03/08/25 08:59 03/08/25 09:00 Labs: Abnormal lab results 03/08/25 03/08/25 03/08/25 Range/Units 11:39 16:30 19:58 POC Capillary Glucose 192 H 151 H 181 H (65-105) mg/dl 03/09/25 03/09/25 Range/Units 08:10 11:10 POC Capillary Glucose 181 H 191 H (65-105) mg/dl H & H 03/08/25 Range/Units 08:59 Hgb 13.9 (12.0-15.0) g/dL Hct 44.1 (37.0-47.0) % Coagulation 03/08/25 Range/Units 09:00 INR 1.0 All other labs normal. Diagnostic results Knee x-ray: image reviewed ( Right knee x-ray overall good alignment, no fracture or acute changes. Moderate degenerative changes.) Knee CT: image reviewed ( Moderate to severe degenerative changes medial compartment and patellofemoral space with lateral subluxation of the patella. No acute changes. Minimal effusion.)
--- NOTE | 2025-03-09 11:51 | PM.OP ---
Procedure Note - Brief Procedure Note - Brief Date of procedure: 03/09/25 knee pain inability to walk Post-op diagnosis: Same Procedure performed: Right Knee Cortisone Injection Surgeon: ERICKA Archibald Shore Working Supervisor: n/a Anesthesia: local Description of procedure: Right Knee Injection. 80mg of Methylprednisolone Injection. The risks of injection were reviewed including but not limited to skin color changes, atrophy of the soft tissue, tendon or soft tissue rupture, joint degeneration, hyper inflammatory response, allergic reaction, continued pain or dysfunction. Specific risks of the procedure including deep infection or soft tissue rupture or recurrence of symptoms reviewed. No guarantees were offered. The patient understands the need for possible further treatment. Estimated blood loss (mL): 0 IV fluids (mL): 0 Urine output (mL): 500 Drains: No Packing: No Pathology: None sent Complications: No immediate complications Condition: Stable Disposition: No change Joint Aspiration & Injection Pre-Procedure Pre-procedure care: Consent was obtained, Procedures/risks were explained, Questions were answered, Correct patient identified and Correct side and site confirmed Post Procedure Patient tolerated the procedure well?: Tolerated procedure well Comment: The risks of injection were reviewed including but not limited to skin color changes, atrophy of the soft tissue, tendon or soft tissue rupture, joint degeneration, hyper inflammatory response, allergic reaction, continued pain or dysfunction. Specific risks of the procedure including deep infection or soft tissue rupture or recurrence of symptoms reviewed. No guarantees were offered. The patient understands the need for possible further treatment. Position Position: Sitting Location: right Site Prepped Technique: sterile technique Anesthetic: lidocaine 1% plain (2mL ) Sterile Dressing Sterile Dressing: Adhesive KNEE Knee Procedure: joint Manual palpation
[2025-03-09 13:38] VITALS: BP 108/74; PULSE 97; RESP 18; TEMP 35.5; O2SAT 95
[2025-03-09] MEDS: INSULIN ASPART (*BKC) 100 UNITS/ML SUB-Q (16:17)
[2025-03-09] MEDS: HYDROcodone/acetaminophen (*CRX) 5-325 MG TABLET 1 TAB PO (19:20)
[2025-03-09 20:09] VITALS: BP 169/92; PULSE 86; RESP 14; TEMP 36.4; O2SAT 96
[2025-03-09 21:40] VITALS: O2SAT 96
[2025-03-09] MEDS: IBUPROFEN IV 800 MG/200 ML 800 MG/200 ML BAG 400 MG IVPB (22:46)
[2025-03-10 03:50] VITALS: BP 145/71; PULSE 81; RESP 14; TEMP 36.4; O2SAT 95
[2025-03-10 06:53] LABS: Hematocrit 44.1 % (37.0-47.0); Hemoglobin 13.8 g/dL (12.0-15.0); Mean Corpuscular HGB Conc 31.3 g/dl (32-36); Mean Corpuscular Hemoglobin 27.8 pg (26-34); Mean Corpuscular Volume 88.9 fl (80-100); Platelet Count Result 189 k/mm3 (150-375); Red Blood Count 4.96 M/mm3 (4.2-5.4); White Blood Count 10.0 K/mm3 (4.5-10.0)
[2025-03-10 07:17] LABS: Alanine Aminotransferase 21 U/L (6-35); Albumin Level 3.4 g/dL (3.5-5.1); Alkaline Phosphatase 50 U/L (38-126); Anion Gap 6 mmol/L (4-12); Aspartate Amino Transferase 39 U/L (14-36); Bilirubin,Total 0.7 mg/dL (0.2-1.3); Blood Urea Nitrogen 18 mg/dL (7-17); Calcium 9.1 mg/dL (8.4-10.2); Carbon Dioxide 27 mmol/L (22-30); Chloride 105 mmol/L (98-107); Estimated CRCL calculation 67 ml/min; Estimated Glomerular Filt Rate > 60; Glucose 148 mg/dL (65-110); Potassium 4.0 mmol/L (3.4-5.0); Sodium 138 mmol/L (137-145); Total Protein 6.4 g/dL (6.3-8.2)
--- NOTE | 2025-03-10 08:21 | PM.PNORT ---
Progress Note: A&P Assessment and Plan (1) Degenerative arthritis of right knee: Qualifiers: Osteoarthritis type: primary Qualified Code(s): M17.11 - Unilateral primary osteoarthritis, right knee Code(s): M17.11 - Unilateral primary osteoarthritis, right knee Status: Acute Assessment and Plan: History, physical exam and radiographs reviewed with the patient. Radiographs reveal degenerative changes. CT scan shows moderate to severe degenerative changes patellofemoral joint and moderate medial joint. No acute changes. Discussed the condition, nature, etiology and course of natural history with the patient. Treatment options including surgical and nonoperative treatment were reviewed. Risks and benefits of each as well as alternatives reviewed. The patient's questions were answered. Conservative treatment ice, compression and elevation. PT/OT with weight-bearing as tolerated. Ibuprofen IV p.r.n.. 1 day s/p cortisone injection. She reports significant improvement since date of admission. She may be discharged from an orthopedic standpoint. Will require medical clearance. Will follow up in 3-4 months in the outpatient orthopedic clinic. (2) Right knee pain: Qualifiers: Chronicity: chronic Qualified Code(s): M25.561 - Pain in right knee; G89.29 - Other chronic pain Code(s): M25.561 - Pain in right knee Status: Acute Subjective Subjective Date/Time Seen: 03/10/25 08:21 Interval history: 1 day s/p right knee injection. C/o pain overnight. Hydrocodone did not help but ibuprofen did. Overall, reports signficant improvement in pain since admission. Review of Systems Review of Systems: All systems reviewed & are unremarkable except as noted in HPI and below Constitutional: Constitutional: Denies fever(s) Eyes: Eyes: Denies blurry vision ENT: Reports Normal hearing present Cardiovascular: Cardiovascular: Denies chest pain and Denies dyspnea Respiratory: Respiratory: Denies dyspnea and Denies wheezing Gastrointestinal: Gastrointestinal: Denies abdominal pain Genitourinary: Genitourinary: Denies urinary urgency Musculoskeletal: Musculoskeletal: Reports as per HPI and Denies numbness Integumentary/Breasts: Skin/Breast: Denies changing lesions and Denies sores Neurologic: Reports Normal hearing present, Denies behavioral changes, Denies confusion, Denies numbness and Denies convulsions Psychiatric: Psychiatric: Denies behavioral changes, Denies confusion and Denies hallucinations Endocrine: Endocrine: Denies heat intolerance Hematologic/Lymphatic: Hematologic/Lymphatic: Denies easy bleeding Allergic/Immunologic: Allergic/Immunologic: Denies wheezing Exam Const: General: No confusion Orientation/consciousness: patient oriented x3 and No confusion HENMT: Head: normal to inspection, normocephalic and atraumatic Eyes: Conjunctivae: conjunctivae normal Sclera: sclerae normal Neck: Neck: supple and nontender Chest: Chest palpation & inspection: normal inspection of the chest Resp: Effort & Inspection: normal respiratory effort and no audible wheezes Cardio: Rate: regular rate Rhythm: regular rhythm GI: GI Palp: No abdominal tenderness and Yes Soft to palpation : General: Yes deferred Skin: General skin exam: no rashes or lesions noted Neuro: General: patient oriented x3 and No confusion Extrem: General: capillary refill normal Right upper extremity: normal to inspection Left upper extremity: normal to inspection Right lower extremity: hip/thigh Details: normal to inspection and normal ROM; no tenderness, knee Details: normal to inspection, tenderness Location: of the medial joint line, swelling Location: of the pre-patellar area, abnormal ROM Details: pain with active ROM during Details: in extension and in flexion and with range as follows ( -5 degrees - flexion 120?) and Jeannie's Test Details: positive medially, ankle ( able to actively flex and extend ankle) Details: no tenderness and foot Details: normal capillary refill, toes with normal ROM, vascular exam Details: dorsalis pedis pulse present and normal capillary refill and motor-sensory exam Details: light-touch normal Location: in all toes; no tenderness Left lower extremity: normal to inspection, hip/thigh Details: no tenderness and no swelling, lower leg, ankle (no calf tenderness) Details: normal ROM; no tenderness and foot Details: normal capillary refill, vascular exam Details: dorsalis pedis pulse present and normal capillary refill and motor-sensory exam light-touch normal in all toes Psych: Affect: normal affect Objective Data Vital Signs Vital Signs: Vital Signs - 24 hr 03/09/25 09:42 03/09/25 10:27 03/09/25 13:38 Temperature 35.5 C L Pulse Rate 97 Respiratory Rate 18 Blood Pressure 108/74 Pulse Oximetry 95 Oxygen Delivery Room Air Room Air 03/09/25 20:09 03/09/25 21:33 03/09/25 21:40 Temperature 36.4 C L Pulse Rate 86 Respiratory Rate 14 Blood Pressure 169/92 H Pulse Oximetry 96 96 Oxygen Delivery Room Air Room Air 03/10/25 03:50 Temperature 36.4 C L Pulse Rate 81 Respiratory Rate 14 Blood Pressure 145/71 H Pulse Oximetry 95 Oxygen Delivery Intake/Output Intake/Output: Intake & Output 03/07/25 03/08/25 03/09/25 03/10/25 23:59 23:59 23:59 23:59 Intake Total 1480 1240 300 Output Total 500 500 Balance 980 740 300 Meds/Results Medications: Active Medications Generic Name Dose Route Start Last Admin Trade Name Freq PRN Reason Stop Dose Admin Acetaminophen 650 mg 03/08/25 03:03 Acetaminophen 325 Mg Tablet PO Q4H PRN Mild Pain (1-3) or Fever Hydrocodone Bitart/Acetaminophen 1 tab 03/08/25 03:03 03/09/25 19:20 Hydrocodone/Acetaminophen (*Crx) 5-325 Mg Tablet PO 1 tab Q4H PRN Administration Pain Rated 4-6 Albuterol 2 puff 03/08/25 06:53 Albuterol Sulfate (*Sp) Aerosol 1 Puff INHALATION Q4H PRN Shortness Of Breath Or Wheezing Dextrose 12.5 gm 03/08/25 06:50 Dextrose 50% 25 Gm/50 Ml Syringe IV PUSH PRN PRN Hypoglycemia Protocol Diclofenac Sodium 1 applic 03/09/25 09:00 03/09/25 21:29 Diclofenac Sodium 1% 100 Gm Gel (*Bkc) TOPICAL 1 applic QID KENJI Administration Enoxaparin Sodium 40 mg 03/10/25 09:00 Enoxaparin 40 Mg/0.4 Ml Syringe SUB-Q DAILY KENJI Glucose 15 gm 03/08/25 06:50 Glucose Oral Gel 15 Gm Of Glucse In 37.5 Gm Tube PO PRN PRN Hypoglycemia Protocol Dextrose 1,000 mls @ 100 mls/hr 03/08/25 06:50 Dextrose 5% 1,000 Ml IVPB PRN PRN Hypoglycemia Protocol Ibuprofen 800 mg in 200 mls @ 400 mls/hr 03/08/25 09:30 03/09/25 23:16 Caldolor 800 Mg/200 Ml IVPB Infused Q6H PRN Infusion Pain Rated 1-3 Insulin Aspart 3 - 6 units 03/08/25 08:00 03/09/25 16:17 Insulin Aspart (*Bkc) 100 Units/Ml SUB-Q 3 units TIDWM KENJI Administration Protocol Losartan Potassium 100 mg 03/08/25 09:00 03/09/25 08:57 Losartan Potassium 100 Mg Tablet PO 100 mg DAILY KENJI Administration Ondansetron HCl 4 mg 03/08/25 03:03 Ondansetron Inj 4 Mg/2 Ml Vial IV PUSH Q4H PRN Nausea Sertraline HCl 50 mg 03/08/25 09:00 03/09/25 08:57 Sertraline Hcl 50 Mg Tablet PO 50 mg DAILY KENJI Administration Radiology Results: ITS Impressions Knee CT 03/08/25 09:43 IMPRESSION: 1. Moderate right knee osteoarthritis. Labs Labs: Laboratory Results - last 24 hr 03/09/25 03/09/25 03/09/25 11:10 16:01 20:04 WBC RBC Hgb Hct MCV MCH MCHC RDW Plt Count MPV Sodium Potassium Chloride Carbon Dioxide Anion Gap BUN Creatinine Estim Creat Clear Calc Estimated GFR Glucose POC Capillary Glucose 191 H 211 H 175 H Calcium Total Bilirubin AST ALT Alkaline Phosphatase Total Protein Albumin 03/10/25 03/10/25 05:32 07:54 WBC 10.0 RBC 4.96 Hgb 13.8 Hct 44.1 MCV 88.9 MCH 27.8 MCHC 31.3 L RDW 14.4 Plt Count 189 MPV 11.0 H Sodium 138 Potassium 4.0 Chloride 105 Carbon Dioxide 27 Anion Gap 6 BUN 18 H Creatinine 0.78 Estim Creat Clear Calc 67 Estimated GFR > 60 Glucose 148 H POC Capillary Glucose 170 H Calcium 9.1 Total Bilirubin 0.7 AST 39 H ALT 21 Alkaline Phosphatase 50 Total Protein 6.4 Albumin 3.4 L
[2025-03-10] MEDS: SERTRALINE HCL 50 MG TABLET PO (09:38)
[2025-03-10] MEDS: LOSARTAN POTASSIUM 100 MG TABLET PO (09:38)
[2025-03-10] MEDS: ENOXAPARIN 40 MG/0.4 ML SYRINGE SUB-Q (09:38)
--- NOTE | 2025-03-10 12:32 | P.DS_ITS ---
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 She denies any recent falls or trauma. Knee Xr showed no fracture, dislocation, or effusion fo right knee. Knee CT showed mod right knee osteoarthritis. Ortho consulted. Continue conservative management with ice, compression and elevation. She underwent a cortisone injection on 03/09. At time of discharge patient states that pain has basically resolved and breakthrough is well controlled on tylenol and ibuprofen. Patient is now able to ambulate throughout her room using the walker and has no complaints. She states that she is back to her baseline ambulation and denies needing any further therapy at discharge. Patient has no complaints at time of discharge denying chest pain, palpitations, shortness of breath, nausea/vomiting, abdominal pain, and dizziness/lightheadedness. Patient discharged home in a stable condition. She is to follow up with her PCP in 1 week and ortho as scheduled. Status at Discharge Functional status at discharge: uses cane/walker Time Spent with Patient Time attestation: Total time spent providing and/or coordinating discharge services: Time spent: Greater than 30 minutes Exam Narrative: AF HR 81 RR 14 SpO2 95 BP 145/71 General: female in no acute respiratory distress who is nontoxic appearing, sitting up in chair HEENT: Normocephalic. Atraumatic. Extraocular movement intact. Sclera clear and anicteric. No facial asymmetry. Chest: Lungs are clear to auscultation bilaterally. CV: Heart was regular rate and rhythm. Abd: Abdomen was soft. Nontender. Nondistended. Positive bowel sounds. Ext: No clubbing, cyanosis, or edema. DP pulses bilaterally. Neuro: Patient is alert. Strenth is 5/5 in both upper and lower extremities. Speech is clear. DS: Data Data Completed and Pending Completed studies during hospitalization: knee xr knee ct Labs on day of discharge: Labs from last 24 hours 03/10/25 03/10/25 03/10/25 11:12 07:54 05:32 WBC 10.0 RBC 4.96 Hgb 13.8 Hct 44.1 MCV 88.9 MCH 27.8 MCHC 31.3 L RDW 14.4 Plt Count 189 MPV 11.0 H Sodium 138 Potassium 4.0 Chloride 105 Carbon Dioxide 27 Anion Gap 6 BUN 18 H Creatinine 0.78 Estim Creat Clear Calc 67 Estimated GFR > 60 Glucose 148 H POC Capillary Glucose 214 H 170 H Calcium 9.1 Total Bilirubin 0.7 AST 39 H ALT 21 Alkaline Phosphatase 50 Total Protein 6.4 Albumin 3.4 L 03/09/25 03/09/25 20:04 16:01 WBC RBC Hgb Hct MCV MCH MCHC RDW Plt Count MPV Sodium Potassium Chloride Carbon Dioxide Anion Gap BUN Creatinine Estim Creat Clear Calc Estimated GFR Glucose POC Capillary Glucose 175 H 211 H Calcium Total Bilirubin AST ALT Alkaline Phosphatase Total Protein Albumin Discharge Plan Discharge Attending physician on discharge: Negro Tay Consulting providers: Joel Connolly; Alyssia Cabrera Discharging Clinician: Alyssia Cabrera Anticipated Discharge Date/Time: 03/10/25 12:29 Patient Disposition: Home Activity: as tolerated Diet: as tolerated and diabetic Discharge Instructions: Discharge disposition: Patient admitted to the hospital for replete and inability to walk Evaluated by Ortho in no acute intervention required at this time Continue ice, compression and elevation Underwent a cortisone shot during admission Continue Tylenol and ibuprofen for pain management Follow up in the 3-4 months in the ortho clinic Monitor blood pressures Take caution while standing, rising, or moving Change positions slowly taking a break between each position change If you standing feel dizzy sit back down and take a break Encouraged to continue with yearly vaccinations Return to the emergency department if he developed sudden shortness of breath, chest pain, nausea, vomiting, upset stomach or intractable diarrhea Return to the emergency department if you develop fever greater than 100.5 Follow-up with the primary care physician within 1-2 weeks Thank you for choosing [facility] for your healthcare needs Patient Instructions: Cortisone (Injection) Patient Language: Kyrgyz Stand Alone Forms: General Discharge Information Follow-up/Referrals: Joel Connolly MD [Physician, Orthopedics] Jacquie Taylor APRN [Advanced Practice Nurse, Orthopedics] - 06/16/25 9:15 am Referral Note: Discharge Medications: Continued albuterol sulfate 90 mcg/actuation HFA aerosol inhaler 1 inh inhalation Q4H PRN (Reason: shortness of breath or wheezing) Qty: 6.7 0RF dapagliflozin propanediol [Farxiga] 10 mg tablet 10 mg PO DAILY Qty: 100 1RF metformin 500 mg tablet 1,000 mg PO DAILY Qty: 180 3RF sertraline 50 mg tablet 50 mg PO DAILY Qty: 90 1RF losartan 100 mg tablet 100 mg PO DAILY Qty: 90 1RF Date of admission: 03/08/25 03:03 Primary Care Provider: Flavio Mcneal Admitting Provider: Delia Kruger Attending physician on admission: Delia Kruger Condition: Stable Hospitalist MIPS Heart Failure (Exclusion) Patient has history of Heart Transplant or Left Ventricular Assistive Device?: No IF YES, STOP HERE Heart Failure (Qualifier) Patient has current or prior documentation of LVEF less than or equal to 40%, or mod/servere depressed LVSF?: No IF NO, STOP HERE
[2025-03-10] MEDS: DICLOFENAC SODIUM 1% 100 GM GEL (*BKC) 1 APPLIC TOPICAL (12:38)
[2025-03-10] MEDS: INSULIN ASPART (*BKC) 100 UNITS/ML SUB-Q (12:38)
== END 2025-03-10 13:40 | disposition home or self-care (01) | DRG 554 ==
LOC: ANHED 03-08 03:02 → ANH3MEDSUR 03-08 03:42
PROVIDERS: Orthopaedic Surgery; Admitting Provider General Practice; Emergency Provider Family Medicine; PCP Family Medicine; Visit Provider Student in an Organized Health Care Education/Training Program
DX: M17.11 Unilateral primary osteoarthritis, right knee (principal); Z68.41 Body mass index [BMI] 40.0-44.9, adult; M25.561 Pain in right knee; M71.21 Synovial cyst of popliteal space [Baker], right knee; J44.9 Chronic obstructive pulmonary disease, unspecified; E66.813 Obesity, class 3; E11.319 Type 2 diabetes mellitus with unspecified diabetic retinopathy without macular edema; E78.1 Pure hyperglyceridemia; I10 Essential (primary) hypertension; G89.29 Other chronic pain; F33.41 Major depressive disorder, recurrent, in partial remission; Z79.84 Long term (current) use of oral hypoglycemic drugs; Z87.891 Personal history of nicotine dependence
CPT/HCPCS: 20610; 36415; 73564; 73700; 80048; 80053; 82948; 83036; 85025; 85027; 85610; 85730; 97162; 97166; 97530; 97535; 99285; A9270; J1650; J1741; J1815